=== PATIENT | male | born 1965 | race Caucasian/White ===

== ENCOUNTER 2019-05-17 05:46 | Inpatient (IN) | payer OTHER, BC ==
[2019-05-14 13:13] LABS: HEMATOCRIT 46.8 % (42.0-52.0); HEMOGLOBIN 15.8 gm/dL (14.0-18.0); MCH 29.4 pg (26.0-34.0); MCHC 33.7 g/dL (28.0-37.0); MCV 87.5 fL (80.0-100.0); RBC 5.36 mil/uL (4.50-6.00); RDW 14.1 % (10.5-14.5); WBC 9.3 thou/uL (4.0-11.0)
[2019-05-14 13:14] LABS: URINE BILIRUBIN NEGATIVE (Negative); URINE BLOOD NEGATIVE (Negative); URINE CLARITY CLEAR; URINE COLOR YELLOW; URINE GLUCOSE-RANDOM* NEGATIVE (Negative); URINE KETONES NEGATIVE (Negative); URINE LEUKOCYTES-REFLEX NEGATIVE (Negative); URINE NITRITE-REFLEX NEGATIVE (Negative); URINE PROTEIN (DIPSTICK) NEGATIVE (Negative); URINE UROBILINOGEN 0.2 E.U./dl (0.2-1.0)
[2019-05-14 13:21] LABS: POTASSIUM 4.3 mmol/L (3.5-5.1)
[2019-05-14 13:27] LABS: PROTIME 10.9 Seconds (9.3-11.4)
[~2019-05-17] VITALS: Ht 182.9 cm; Wt 93.0 kg
[~2019-05-17 05:46] MED LIST: COZAAR 25 MG TA25 M2 PO; LIPITOR20 MG PO; ZANTAC 150MG T150 M1 PO
[2019-05-17 07:39] VITALS: BP 136/86
[2019-05-17 18:54] VITALS: BP 131/84
--- NOTE | 2019-05-17 19:38 | NUR ---
PATIENT ADMITTED FROM OR, TOTAL LEFT SHOULDER REPLACEMENT/OPEN BICEP TENODYSIS. PATIENT HAS IMMOBILIZER IN PLACE, WITH AQUACEL DRESSING, WITH POLAR PACK IN PLACE. PATIENT HAS RIGHT HAND IV WITH LR AT 80CC/HR, RECEIVED ANCEF X 1 AT 1600. REGULAR DIET. VSS. BLOOCK TO LEFT SHOULDER AREA, DENIED PAIN THIS SHIFT. ADMISSION DONE, CARE PLAN WILL DONE BY TRENT/BASSEM NIGHTSHIFT. WILL CONTINUE TO MONITOR.
--- NOTE | 2019-05-18 01:37 | NUR ---
PT ASSESSED AT START OF SHIFT.PT C/O PAIN ON HIS L SHOULDER,MANAGED WITH MEDICATION.PT REQUESTED FOR HIS HOME MEDS,DR MICHAELS NOTIFIED VIA ANSWERING SERVICE,GOT A CALL BACK FROM [place],ORDER NOTED AND CARRIED OUT. PT UP WITH SBA TO TOILET.Kim RIVERA C/D/I WITH IMMOBILIZER AND POLAR PACK IN PLACE.HOME MED RECONCILED,PLAN OF CARE COMPLETED.ICE CHANGED ON POLAR PACK NEEDED.PT ABLE TO MOVE SELF IN BED.PT RESTING ON HIS BED AT THIS TIME.CALL LIGHT WITHIN REACH.
[2019-05-18 03:52] VITALS: BP 121/81
[2019-05-18 06:06] LABS: HEMATOCRIT 38.9 % (42.0-52.0); HEMOGLOBIN 12.9 gm/dL (14.0-18.0)
[2019-05-18 07:03] VITALS: BP 121/71
[2019-05-18 16:14] VITALS: BP 126/77
--- NOTE | 2019-05-18 19:43 | NUR ---
PATIENT ALERT AND ORIENTED WITH SPOUSE AT BEDSIDE THIS AFTERNOON. PATIENT CONTINUES TO NEED IV MORPHINE FOR PAIN CONTROL. WILL ATTEMPT TO CONTROL PAIN WITH PO TAB PAIN MEDS AND DISCHARGE TOMORROW. PATIENT UP WITH PT AND WALKED AROUNG 4S [facility]URSING [facility] SBA.
[2019-05-18 20:34] VITALS: BP 138/94
--- NOTE | 2019-05-19 04:35 | NUR ---
PT C/O PAIN,MANAGED WITH PO MED EVERY FOUR HOURS,PT VOICED THAT HIS PAIN WAS WELL CONTROLLED THAN THE PREVIOUS NIGHT.POLAR PACK STILL ON HIS L SHOULDER WITH IMMOBILIZER,PT ABLE TO WIGGLE AND FEEL HIS FINGERS.LOW GRADE FEVER NOTED OVER NIGHT.URINAL AT BEDSIDE.PT REF TO CONT WITH THE IV FLUIDS,STATED THAT HE DRINKS WELL.PT LOOKING FORWARD TO BE DISCHARGED HOME LATER IN THE DAY.
[2019-05-19 09:13] VITALS: BP 138/87
[2019-05-19 09:35] VITALS: BP 138/87
--- NOTE | 2019-05-19 10:21 | NUR ---
PT ALERT AND ORIENTED TIMES FOUR. VSS, 97%RA. PT C/O PAIN LEFT ARM. PRN PAIN MEDICATIONS GIVEN WITH GOOD RELEIF. PT TOLERTATED BREAKFAST. PLANS TO DISCHARGE TODAY. AT BEDSIDE. PT PROGRESSING TOWRADS POC GOALS.
--- NOTE | 2019-06-12 11:38 | O ---
[facility] [place] [address] OPERATIVE REPORT Name: SHUN WHITE Room #: 441-P [facility] M.R.#: [id number] Admission: 05/17/19 Attend Phys: Jett Molina Discharge: 05/19/19 Date of : 65 Report #: [id number] THIS REPORT FOR: //name// CC: Jett ESPANA Physician staff DATE OF SERVICE: 05/17/2019 PREOPERATIVE DIAGNOSES: Left shoulder osteoarthritis, posterior glenoid wear with biconcave glenoid, biceps tendinopathy. POSTOPERATIVE DIAGNOSES: Left shoulder osteoarthritis, posterior glenoid wear with biconcave glenoid, biceps tendinopathy. PROCEDURE PERFORMED: Left total shoulder arthroplasty with Step-Tech glenoid, open biceps tenodesis. SURGEON: Jett Garcia M.D. MEDICAL UNDERWRITER: Marie Lockett PA-C. ANESTHESIA: General with preoperative ultrasound-guided interscalene block. FLUIDS: 1000 mL crystalloid. ESTIMATED BLOOD LOSS: Approximately 75 mL. IMPLANTS UTILIZED: DePuy Global Unite stem 135 degree size 10 proximal body and a 52 x 21 eccentric humeral head, 48+5 anchor peg Step-Tech glenoid. DESCRIPTION OF PROCEDURE: After proper identification of the patient and operative site in preoperative holding area, the operative site was signed by myself. Prophylactic antibiotics given. The patient elected to receive an ultrasound-guided block after reviewing the risks, benefits, alternatives and complications with anesthesia. After a satisfactory block, the patient was brought back to the operative suite after induction of satisfactory general anesthesia per endotracheal tube. He was carefully positioned in the beach chair position with head of bed elevated approximately 40 degrees. A Fandeavor limb positioning system was utilized throughout the entire procedure, left shoulder was sterilely prepped and draped in usual manner. Head and neck were carefully positioned. Anterior deltopectoral approach was planned. Final skin draping was with Ioban. Skin was incised sharply. Full thickness skin flaps were developed. Cephalic vein was identified and retracted laterally. Subdeltoid adhesions were released bluntly. Mukul deltoid retractor was utilized. At this point, the small portion of the upper border of the [address] [address] OPERATIVE REPORT Name: SHUN WHITE Scott Room #: 441-P [facility] IN ..#: [id number] Admission: 05/17/19 Attend Phys: Jett Molina Discharge: 05/19/19 Date of : 65 Report #: [id number] pectoralis major was released. Long head of biceps tendon was tenodesed to its undersurface and this was then repaired with #2 FiberWire. Long head of biceps tendon was followed proximally. Spurring was appreciated within the bicipital groove as well as partial thickness tearing of the biceps tendon. Rotator interval was then opened. A lesser tuberosity osteotomy was performed. The capsule was released off the humeral head. Anterior circumflex vessels had been identified and ligated. Prior to this, spurring was removed with a rongeur. Humeral head osteotomy was performed at 135 degrees neck shaft angle using a cutting guide. This was performed in approximately 25 degrees of retroversion. The patient's metaphyseal bone quality was excellent. The rotator cuff was otherwise intact. This was reamed by hand to the canal up to a size 10 stem. The Global Unite brosteotome was used up to a size 10 and the trial was carefully impacted into position, it was well seated. The metal protection plate was applied and the joint was reduced and eventually distracted with lamina record tester for the circumferential labral release. Anterior capsule was released off the subscapularis using a right angle retractor. It was bluntly spread from the subscapularis. Axillary nerve was identified and protected throughout the entire procedure. The anterior capsule was excised as well as the labrum was excised circumferentially. The patient had a biconcave appearing glenoid, which was consistent with his preoperative imaging studies and augmented glenoid was planned. A 48 mm glenoid was chosen and provided the best fit and using the +7, 48 mm guide, the guide pin was advanced. Its position was checked along the more medial aspect of the scapula where it perforated the far cortex and it was felt to be in satisfactory position as well. The glenoid face was reamed and any peripheral soft tissue was then carefully removed. Step drill was utilized for a +5 augmented glenoid and the Step-Tech guide was carefully impacted into position. This was secured with the breakaway K-wire and then a slow and progressive reaming of the posterior step was done with the rasp and the cortical margin superiorly and inferiorly with an oval shaped bur. After the posterior step had been satisfactorily created, the guides were removed. Any remaining soft tissue in this region was irrigated with saline. The 48 trial fit nicely. Nice fluid film interface was noted on the back surface of the implant. The peripheral peg guide was carefully advanced into position. The anterior inferior peg was drilled first. After the guide was fully seated, derotation peg was utilized and the posterior inferior peg and then the superior PEG was drilled. These were removed. The superior PEG had small perforation. This was not cemented. This area was irrigated with antibiotic irrigant and dried. FloSeal was utilized after the trial implant was placed and fully seated and felt to be well positioned. This was removed and then this was dried and the FloSeal was placed while bone graft was placed on the prosthesis and cement was prepared and mixed by hand and placed in a Tuohy syringe. Glenoid was irrigated. FloSeal was irrigated free and then cement was placed in the inferior 2 peg holes. The implant was carefully impacted into position, it had excellent fixation and was held firmly in place until the cement had cured. Overall is well positioned. At this point, the humerus was delivered anteriorly. A 58 x 21 eccentric humeral head provided the best [facility] [address] [place] [address] OPERATIVE REPORT Name: SHUN WHITE Room #: 441-P [facility] M.R.#: [id number] Admission: 05/17/19 Attend Phys: Jett Molina Discharge: 05/19/19 Date of : 65 Report #: [id number] recreation of the proximal humeral anatomy. This had nice translation with pushback noted with posterior subluxation. Trial implants were removed. Four drill holes were placed in the anterior cortex of the humerus and a size 10 stem was carefully prepared on the backtable. Inferior 2 sutures were wrapped around this and then the stem was carefully impacted into position. It had excellent fixation within the humerus and due to the bone integrity, the stem itself had such a tight fit within the canal that it was approximately 1.5 mm proud. This area was bone grafted after the head was placed. The eccentricity was positioned. This was carefully impacted into position. Next, this area was then bone grafted for this a small defect. Shoulder was reduced after it was irrigated with antibiotic irrigant and it was felt to be well positioned with good recreation of the proximal humeral anatomy. Modified Hilton-Micheal sutures were utilized for home in total to repair the lesser tuberosity osteotomy. Lateral portion of the rotator interval was closed with #2 FiberWire. One gram vancomycin powder was utilized, half of it deep, half at more superficial. 0 Vicryl was used to close deltopectoral interval, 2-0 Vicryl for subcutaneous tissues, final skin closure with running Monocryl followed by Dermabond. Sterile dressing was applied. Sling will be utilized for 4 weeks postoperatively. Qualified assistant fitness manager utilized throughout the entire procedure to aid in patient limb positioning, visualization and retraction of the soft tissues, instrument passage, closure and sling and dressing application. <ELECTRONICALLY SIGNED> By: Jett Garcia MD 06/12/19 [id number] Jett Garcia MD /nt
== END 2019-05-19 10:15 | disposition home or self-care (01) | DRG 483 ==
LOC: TBA 05:46 → OR 05:46 → PRE 08:10 → EDSTATUS 08:34 → OR 08:36 → PRE 12:34 → OR 14:03 → PRE 14:03 → 4S 14:03 → PRE 14:40 → OR 14:49 → PRE 16:18 → 4S 05-19 10:15
PROVIDERS: Physician Assistant Surgical; ADMIT Orthopaedic Surgery Sports Medicine
DX: M19.012 Primary osteoarthritis, left shoulder (principal)
CPT/HCPCS: 10102; 50010; 50101; 50172; 50386; 50417; 50697; 50733; 50935; 51751; 52138; 52256; 53000; 53023; 53078; 54118; 55430; 56521; 56524; 56525; 56526; 56530; 57095; 57103; 62110; 62900; 70005